=== PATIENT | male | born 1945 | race Caucasian/White ===

== ENCOUNTER → 2018-03-17 10:37 | Outpatient (CLI) | payer MEDICARE, SELFPAY ==
[2018-03-17 12:48] LABS: ALT 31 U/L (12-78); AST 17 U/L (15-37); Albumin 3.7 g/dL (3.4-5.0); Alkaline Phosphatase 80 U/L (46-116); Bilirubin, Total 0.6 mg/dL (0.2-1.0); Cholesterol 173 mg/dL (50-200); HDL Cholesterol 49 mg/dL (40-60); LDL CHOLESTEROL 101 mg/dL (<100); Total Protein 7.1 g/dL (6.4-8.2); Triglyceride 140 mg/dL (30-150)
[2018-03-17 13:14] LABS: Bilirubin, Direct 0.17 mg/dL (0.00-0.20)
== END ==
PROVIDERS: PCP Family Medicine; Visit Provider Family Medicine
DX: E78.5 Hyperlipidemia, unspecified (principal)
CPT/HCPCS: 36415; 80061; 80076; 83721

== ENCOUNTER 2020-09-10 17:54 | Outpatient (REF) | payer MEDICARE, SELFPAY ==
[2020-09-10 18:15] LABS: Abs Immature Grans 0.03 10^3/uL (0.0-0.06); Absolute Basophil Count 0.04 10^3/uL (0.0-0.2); Absolute Monocyte Count 0.65 10^3/uL (0.1-0.8); Absolute Neutrophil Count 6.79 10^3/uL (1.2-6.7); Basophils % 0.4; Eosinophils % 1.1; HGB 13.7 g/dL (13.5-17.5); Immature Grans % 0.3; Lymphocytes % 16.5; MCHC 32.6 % (32.0-36.0); MCV 92.1 fL (80-95); MPV 11.5 fL (8.0-11.0); Monocytes % 7.1; Neutrophils % 74.6; Nucleated RBC 0 %; Platelet Count 258 10^3/uL (130-400); RBC 4.56 10^6/uL (4.36-5.78); RDW 13.2 % (11.8-14.1); RDW-SD 44.8 fL; WBC 9.11 10^3/uL (4.4-10.8)
[2020-09-10 18:35] LABS: ALT 28 U/L (16-63); AST 24 U/L (15-37); Albumin 3.2 g/dL (3.4-5.0); Alkaline Phosphatase 73 U/L (46-116); Anion Gap 3.2 mmol/L (3-11); BUN 21 mg/dL (7-18); Bilirubin, Total 0.4 mg/dL (0.2-1.0); CO2 25.8 mmol/L (21.0-32.0); CREATININE 1.4 mg/dL (0.70-1.30); Calcium 8.6 mg/dL (8.5-10.1); Chloride 105 mmol/L (98-107); Estimated GFR 49.68 (mL/min/1.73m2); Folate 6.4 ng/mL (8.6-20.0); Glucose 106 mg/dL (74-106); Sodium 134 mmol/L (136-145); TSH (W/Ref FT4) 1.48 uIU/mL (0.36-3.74)
[2020-09-12 22:05] LABS: Vitamin B12 1280 pg/mL (211-911)
== END 2020-09-10 17:55 | disposition home or self-care (01) ==
LOC: LBN 17:54
PROVIDERS: Visit Provider Family Medicine
DX: G30.1 Alzheimer's disease with late onset (principal); E66.3 Overweight
CPT/HCPCS: 80053; 82607; 82746; 84443; 85025

== ENCOUNTER 2020-10-17 15:45 | Outpatient (REF) | payer MEDICARE, SELFPAY ==
[2020-10-17 16:31] LABS: Vitamin D 25 Total 30.4 ng/ml (30-100)
== END 2020-10-17 15:46 | disposition home or self-care (01) ==
LOC: LBN 15:45
PROVIDERS: Visit Provider Family Medicine
DX: E55.9 Vitamin D deficiency, unspecified (principal)
CPT/HCPCS: 82306

== ENCOUNTER 2021-05-22 11:41 | Outpatient (REF) | payer MEDICARE, SELFPAY ==
[2021-05-22 11:54] LABS: Abs Immature Grans 0.06 10^3/uL (0.0-0.06); Absolute Basophil Count 0.05 10^3/uL (0.0-0.2); Absolute Eosinophil Count 0.06 10^3/uL (0.0-0.7); Absolute Lymphocyte Count 1.75 10^3/uL (1.2-3.4); Absolute Monocyte Count 0.72 10^3/uL (0.1-0.8); Absolute Neutrophil Count 6.33 10^3/uL (1.2-6.7); Basophils % 0.6; Eosinophils % 0.7; HCT 48.7 % (40.0-50.0); HGB 15.8 g/dL (13.5-17.5); Immature Grans % 0.7; Lymphocytes % 19.5; MCH 29.5 pg (27.0-33.0); MCHC 32.4 % (32.0-36.0); MPV 10.6 fL (8.0-11.0); Neutrophils % 70.5; Nucleated RBC 0 %; Platelet Count 353 10^3/uL (130-400); RBC 5.35 10^6/uL (4.36-5.78); RDW 13.2 % (11.8-14.1); RDW-SD 43.8 fL; WBC 8.97 10^3/uL (4.4-10.8)
[2021-05-22 12:20] LABS: Hemoglobin A1C 5.6 % (<5.7)
[2021-05-22 12:27] LABS: ALT 24 U/L (16-63); AST 15 U/L (15-37); Albumin 3.9 g/dL (3.4-5.0); Alkaline Phosphatase 67 U/L (46-116); BUN 17 mg/dL (7-18); Bilirubin, Total 0.6 mg/dL (0.2-1.0); CREATININE 1.3 mg/dL (0.70-1.30); Calcium 8.7 mg/dL (8.5-10.1); Chloride 105 mmol/L (98-107); Estimated GFR 53.96 (mL/min/1.73m2); Glucose 113 mg/dL (74-106); Magnesium 2.2 mg/dL (1.8-2.4); Potassium 4.4 mmol/L (3.5-5.1); Sodium 141 mmol/L (136-145); TSH (W/Ref FT4) 2.27 uIU/mL (0.36-3.74); Total Protein 6.9 g/dL (6.4-8.2)
[2021-05-23 00:37] LABS: Vitamin D 25 Total 56.8 ng/mL (30-100)
== END 2021-05-22 11:42 | disposition home or self-care (01) ==
LOC: LBN 11:41
PROVIDERS: Visit Provider Internal Medicine
DX: D52.0 Dietary folate deficiency anemia (principal); E78.5 Hyperlipidemia, unspecified; R63.4 Abnormal weight loss
CPT/HCPCS: 80053; 82306; 83036; 83735; 84443; 85025

== ENCOUNTER 2021-07-05 19:01 | Outpatient (REF) | payer MEDICARE, SELFPAY | END 2021-07-05 19:02 | disposition home or self-care (01) | LOC: LBN 19:01 | PROVIDERS: Visit Provider Internal Medicine | DX: R30.0 Dysuria (principal) | CPT/HCPCS: 87086 ==

== ENCOUNTER 2021-07-08 16:41 | Outpatient (REF) | payer MEDICARE, SELFPAY ==
[2021-07-08 19:38] LABS: Abs Immature Grans 0.06 10^3/uL (0.0-0.06); Absolute Basophil Count 0.06 10^3/uL (0.0-0.2); Absolute Eosinophil Count 0.02 10^3/uL (0.0-0.7); Absolute Lymphocyte Count 1.25 10^3/uL (1.2-3.4); Absolute Monocyte Count 0.66 10^3/uL (0.1-0.8); Absolute Neutrophil Count 8.19 10^3/uL (1.2-6.7); Basophils % 0.6; Eosinophils % 0.2; HCT 47.4 % (40.0-50.0); HGB 15.2 g/dL (13.5-17.5); Immature Grans % 0.6; Lymphocytes % 12.2; MCH 29.9 pg (27.0-33.0); MCHC 32.1 % (32.0-36.0); MCV 93.3 fL (80-95); Monocytes % 6.4; Nucleated RBC 0 %; Platelet Count 301 10^3/uL (130-400); RBC 5.08 10^6/uL (4.36-5.78); RDW-SD 44.6 fL; WBC 10.24 10^3/uL (4.4-10.8)
[2021-07-08 20:40] LABS: Hemoglobin A1C 5.5 % (<5.7)
[2021-07-08 20:51] LABS: ALT 22 U/L (16-63); AST 15 U/L (15-37); Albumin 3.7 g/dL (3.4-5.0); Alkaline Phosphatase 70 U/L (46-116); BUN 19 mg/dL (7-18); Bilirubin, Total 0.4 mg/dL (0.2-1.0); CREATININE 1.4 mg/dL (0.70-1.30); Calcium 8.6 mg/dL (8.5-10.1); Chloride 104 mmol/L (98-107); Estimated GFR 49.54 (mL/min/1.73m2); Glucose 122 mg/dL (74-106); Iron 152 ug/dL (65-175); Potassium 4.9 mmol/L (3.5-5.1); Sodium 138 mmol/L (136-145); Total Protein 6.7 g/dL (6.4-8.2)
== END 2021-07-08 16:42 | disposition home or self-care (01) ==
LOC: LBN 16:41
PROVIDERS: Visit Provider Nurse Practitioner Gerontology
DX: D52.0 Dietary folate deficiency anemia (principal); R63.4 Abnormal weight loss; R73.09 Other abnormal glucose; G30.8 Other Alzheimer's disease
CPT/HCPCS: 80053; 83036; 83540; 85025

== ENCOUNTER 2021-07-25 19:26 | Outpatient (REF) | payer MEDICARE, SELFPAY | END 2021-07-25 19:27 | disposition home or self-care (01) | LOC: LBN 19:26 | PROVIDERS: Visit Provider Nurse Practitioner Gerontology | DX: R35.0 Frequency of micturition (principal); G30.9 Alzheimer's disease, unspecified | CPT/HCPCS: 87086 ==

== ENCOUNTER 2021-08-27 16:06 | Outpatient (REF) | payer SELFPAY ==
[2021-08-27 16:30] LABS: Abs Immature Grans 0.07 10^3/uL (0.0-0.06); Absolute Basophil Count 0.03 10^3/uL (0.0-0.2); Absolute Eosinophil Count 0.02 10^3/uL (0.0-0.7); Absolute Lymphocyte Count 1.33 10^3/uL (1.2-3.4); Absolute Monocyte Count 0.46 10^3/uL (0.1-0.8); Absolute Neutrophil Count 7.87 10^3/uL (1.2-6.7); Basophils % 0.3; Eosinophils % 0.2; HCT 45.5 % (40.0-50.0); HGB 14.9 g/dL (13.5-17.5); Immature Grans % 0.7; Lymphocytes % 13.6; MCH 30.3 pg (27.0-33.0); MCHC 32.7 % (32.0-36.0); MCV 92.7 fL (80-95); MPV 11.5 fL (8.0-11.0); Monocytes % 4.7; Neutrophils % 80.5; Nucleated RBC 0 %; Platelet Count 297 10^3/uL (130-400); RBC 4.91 10^6/uL (4.36-5.78); RDW 13.1 % (11.8-14.1); RDW-SD 44.5 fL; WBC 9.78 10^3/uL (4.4-10.8)
[2021-08-27 16:45] LABS: Iron 86 ug/dL (65-175); Total Iron Binding Capacity 235 ug/dL (250-450); Transferrin Sat 37 % (20-55)
[2021-08-27 16:47] LABS: ESR 7 mm/hr (0-20)
[2021-08-27 17:11] LABS: ALT 29 U/L (16-63); AST 15 U/L (15-37); Albumin 3.4 g/dL (3.4-5.0); Alkaline Phosphatase 80 U/L (46-116); Anion Gap 10.5 mmol/L (3-11); BUN 17 mg/dL (7-18); Bilirubin, Total 0.3 mg/dL (0.2-1.0); CO2 25.5 mmol/L (21.0-32.0); CREATININE 1.2 mg/dL (0.70-1.30); Calcium 8.3 mg/dL (8.5-10.1); Chloride 103 mmol/L (98-107); Estimated GFR 59.18 (mL/min/1.73m2); Folate 11.4 ng/mL (8.6-20.0); Glucose 168 mg/dL (74-106); Potassium 4.2 mmol/L (3.5-5.1); Sodium 139 mmol/L (136-145); TSH (W/Ref FT4) 1.14 uIU/mL (0.36-3.74); Total Protein 6.5 g/dL (6.4-8.2); Vitamin B12 1398 pg/mL (193-986)
[2021-08-27 17:21] LABS: C-Reactive Protein 0.08 mg/dL (0.0-0.3)
[2021-08-29 05:12] LABS: Vitamin D 25 Total 56.1 ng/mL (30-100)
== END 2021-08-27 16:07 | disposition home or self-care (01) ==
LOC: LBN 16:06
PROVIDERS: Visit Provider Nurse Practitioner Gerontology
DX: D52.0 Dietary folate deficiency anemia (principal); R63.4 Abnormal weight loss; E78.5 Hyperlipidemia, unspecified; G30.1 Alzheimer's disease with late onset; E55.9 Vitamin D deficiency, unspecified
CPT/HCPCS: 80053; 82306; 85652; 82607; 82746; 83540; 83550; 83735; 84443; 85025; 86140

== ENCOUNTER 2022-02-04 18:43 | Outpatient (REF) | payer MEDICARE, SELFPAY ==
[2022-02-04 18:35] LABS: Abs Immature Grans 0.09 10^3/uL (0.0-0.06); Absolute Basophil Count 0.06 10^3/uL (0.0-0.2); Absolute Eosinophil Count 0.03 10^3/uL (0.0-0.7); Absolute Lymphocyte Count 1.33 10^3/uL (1.2-3.4); Absolute Neutrophil Count 8.96 10^3/uL (1.2-6.7); Basophils % 0.5; Eosinophils % 0.3; HCT 47.2 % (40.0-50.0); HGB 15.2 g/dL (13.5-17.5); Immature Grans % 0.8; Lymphocytes % 11.9; MCH 30.5 pg (27.0-33.0); MCHC 32.2 % (32.0-36.0); MCV 95 fL (80-95); MPV 10.8 fL (8.0-11.0); Monocytes % 6.4; Neutrophils % 80.1; Platelet Count 293 10^3/uL (130-400); RBC 4.99 10^6/uL (4.36-5.78); RDW 13.3 % (11.8-14.1); RDW-SD 46.7 fL; WBC 11.18 10^3/uL (4.4-10.8)
[2022-02-04 18:37] LABS: Absolute Monocyte Count 0.72 10^3/uL (0.1-0.8)
[2022-02-04 18:51] LABS: ALT 22 U/L (16-63); AST 17 U/L (15-37); Albumin 3.6 g/dL (3.4-5.0); Alkaline Phosphatase 64 U/L (46-116); Anion Gap 10.9 mmol/L (3-11); BUN 17 mg/dL (7-18); Bilirubin, Total 0.4 mg/dL (0.2-1.0); CO2 26.1 mmol/L (21.0-32.0); CREATININE 1.3 mg/dL (0.70-1.30); Calcium 8.4 mg/dL (8.5-10.1); Chloride 106 mmol/L (98-107); Estimated GFR 53.82 (mL/min/1.73m2); Glucose 145 mg/dL (74-106); Potassium 4.9 mmol/L (3.5-5.1); Sodium 143 mmol/L (136-145); Total Protein 6.6 g/dL (6.4-8.2)
== END 2022-02-04 18:44 | disposition home or self-care (01) ==
LOC: LBN 18:43
PROVIDERS: Visit Provider Nurse Practitioner Gerontology
DX: D52.0 Dietary folate deficiency anemia (principal); R41.841 Cognitive communication deficit; G30.1 Alzheimer's disease with late onset
CPT/HCPCS: 80053; 85025

== ENCOUNTER 2022-09-02 22:20 | Outpatient (REF) | payer MEDICARE, SELFPAY ==
[2022-09-02 21:39] LABS: Iron 57 ug/dL (65-175); Total Iron Binding Capacity 319 ug/dL (250-450); Transferrin Sat 18 % (20-55)
[2022-09-02 21:55] LABS: Folate > 20.0 ng/mL (8.6-20.0)
== END 2022-09-02 22:21 | disposition home or self-care (01) ==
LOC: LBN 22:20
PROVIDERS: Visit Provider Nurse Practitioner Gerontology
DX: D51.9 Vitamin B12 deficiency anemia, unspecified (principal); E55.9 Vitamin D deficiency, unspecified; F41.1 Generalized anxiety disorder; R68.89 Other general symptoms and signs
CPT/HCPCS: 82746; 83540; 83550

== ENCOUNTER 2022-09-08 19:14 | Outpatient (REF) | payer MEDICARE, SELFPAY ==
[2022-09-08 20:47] LABS: Vitamin B12 491 pg/mL (193-986)
[2022-09-08 21:20] LABS: Vitamin D 25 Total 54.9 ng/mL (30-100)
== END 2022-09-08 19:15 | disposition home or self-care (01) ==
LOC: LBN 19:14
PROVIDERS: Visit Provider Nurse Practitioner Gerontology
DX: R68.89 Other general symptoms and signs (principal)
CPT/HCPCS: 82306; 82607

== ENCOUNTER 2022-11-05 17:59 | Outpatient (REF) | payer MEDICARE, SELFPAY ==
[2022-11-05 17:28] LABS: Abs Immature Grans 0.06 10^3/uL (0.0-0.06); Absolute Basophil Count 0.05 10^3/uL (0.0-0.2); Absolute Lymphocyte Count 1.53 10^3/uL (1.2-3.4); Absolute Monocyte Count 0.69 10^3/uL (0.1-0.8); Absolute Neutrophil Count 5.62 10^3/uL (1.2-6.7); Basophils % 0.6; Eosinophils % 1.2; HCT 45.5 % (40.0-50.0); HGB 14.7 g/dL (13.5-17.5); Immature Grans % 0.7; MCH 29.8 pg (27.0-33.0); MCHC 32.3 % (32.0-36.0); MCV 92 fL (80-95); MPV 11.1 fL (8.0-11.0); Monocytes % 8.6; Neutrophils % 69.9; Platelet Count 272 10^3/uL (130-400); RBC 4.94 10^6/uL (4.36-5.78); RDW 13.3 % (11.8-14.1); RDW-SD 45.3 fL; WBC 8.05 10^3/uL (4.4-10.8)
[2022-11-05 17:57] LABS: ALT 26 U/L (16-63); AST 14 U/L (15-37); Albumin 3.4 g/dL (3.4-5.0); Alkaline Phosphatase 62 U/L (46-116); BUN 17 mg/dL (7-18); Bilirubin, Total 0.4 mg/dL (0.2-1.0); CREATININE 1.4 mg/dL (0.70-1.30); Calcium 8.8 mg/dL (8.5-10.1); Chloride 107 mmol/L (98-107); Estimated GFR 52.09 (mL/min/1.73m2); Glucose 102 mg/dL (74-106); NT-proBNP 74 pg/mL (<300); Potassium 4.5 mmol/L (3.5-5.1); Sodium 141 mmol/L (136-145); Total Protein 6.6 g/dL (6.4-8.2)
== END 2022-11-05 18:00 | disposition home or self-care (01) ==
LOC: LBN 17:59
PROVIDERS: Visit Provider Nurse Practitioner Gerontology
DX: G30.1 Alzheimer's disease with late onset (principal); R68.89 Other general symptoms and signs; R06.89 Other abnormalities of breathing
CPT/HCPCS: 80053; 83880; 85025

== ENCOUNTER 2022-11-18 20:56 | Outpatient (REF) | payer MEDICARE, SELFPAY ==
[2022-11-18 20:55] LABS: Abs Immature Grans 0.03 10^3/uL (0.0-0.06); Absolute Basophil Count 0.05 10^3/uL (0.0-0.2); Absolute Lymphocyte Count 1.34 10^3/uL (1.2-3.4); Absolute Monocyte Count 0.71 10^3/uL (0.1-0.8); Absolute Neutrophil Count 5.53 10^3/uL (1.2-6.7); Basophils % 0.6; Eosinophils % 1.3; HGB 14.6 g/dL (13.5-17.5); Immature Grans % 0.4; Lymphocytes % 17.3; MCH 30.4 pg (27.0-33.0); MCHC 32.4 % (32.0-36.0); MCV 94 fL (80-95); MPV 11.5 fL (8.0-11.0); Monocytes % 9.1; Neutrophils % 71.3; Platelet Count 261 10^3/uL (130-400); RDW 13.4 % (11.8-14.1); RDW-SD 46.5 fL; WBC 7.76 10^3/uL (4.4-10.8)
[2022-11-18 21:24] LABS: Hemoglobin A1C 5.8 % (<5.7)
[2022-11-18 21:53] LABS: ALT 33 U/L (16-63); AST 17 U/L (15-37); Albumin 3.5 g/dL (3.4-5.0); Alkaline Phosphatase 62 U/L (46-116); Anion Gap 6.8 mmol/L (3-11); BUN 20 mg/dL (7-18); Bilirubin, Total 0.3 mg/dL (0.2-1.0); CO2 26.2 mmol/L (21.0-32.0); CREATININE 1.3 mg/dL (0.70-1.30); Calcium 8.8 mg/dL (8.5-10.1); Chloride 105 mmol/L (98-107); Estimated GFR 56.93 (mL/min/1.73m2); Glucose 97 mg/dL (74-106); NT-proBNP 159 pg/mL (<300); Potassium 4.8 mmol/L (3.5-5.1); Sodium 138 mmol/L (136-145); Total Protein 6.8 g/dL (6.4-8.2)
== END 2022-11-18 20:57 | disposition home or self-care (01) ==
LOC: LBN 20:56
PROVIDERS: Visit Provider Nurse Practitioner Gerontology
DX: R68.89 Other general symptoms and signs (principal)
CPT/HCPCS: 80053; 80164; 83036; 83880; 85025

== ENCOUNTER 2023-01-19 20:05 | Outpatient (REF) | payer MEDICARE, SELFPAY ==
[2023-01-19 20:44] LABS: Abs Immature Grans 0.04 10^3/uL (0.0-0.06); Absolute Basophil Count 0.05 10^3/uL (0.0-0.2); Absolute Eosinophil Count 0.07 10^3/uL (0.0-0.7); Absolute Lymphocyte Count 1.59 10^3/uL (1.2-3.4); Absolute Monocyte Count 0.66 10^3/uL (0.1-0.8); Absolute Neutrophil Count 5.98 10^3/uL (1.2-6.7); Basophils % 0.6; Eosinophils % 0.8; HGB 14.7 g/dL (13.5-17.5); Immature Grans % 0.5; MCH 30.6 pg (27.0-33.0); MCV 96 fL (80-95); MPV 10.8 fL (8.0-11.0); Monocytes % 7.9; Neutrophils % 71.2; Platelet Count 255 10^3/uL (130-400); RDW 13.9 % (11.8-14.1); RDW-SD 49.2 fL; WBC 8.39 10^3/uL (4.4-10.8)
[2023-01-19 20:55] LABS: ALT 31 U/L (16-63); AST 19 U/L (15-37); Albumin 3.6 g/dL (3.4-5.0); Alkaline Phosphatase 63 U/L (46-116); Anion Gap 8.3 mmol/L (3-11); BUN 21 mg/dL (7-18); Bilirubin, Total 0.3 mg/dL (0.2-1.0); CO2 28.7 mmol/L (21.0-32.0); CREATININE 1.3 mg/dL (0.70-1.30); Calcium 8.8 mg/dL (8.5-10.1); Chloride 108 mmol/L (98-107); Estimated GFR 56.93 (mL/min/1.73m2); Glucose 100 mg/dL (74-106); Potassium 4.8 mmol/L (3.5-5.1); Sodium 145 mmol/L (136-145); Total Protein 6.9 g/dL (6.4-8.2)
== END 2023-01-19 20:06 | disposition home or self-care (01) ==
LOC: LBN 20:05
PROVIDERS: Visit Provider Nurse Practitioner Gerontology
DX: E78.5 Hyperlipidemia, unspecified (principal); D52.9 Folate deficiency anemia, unspecified
CPT/HCPCS: 80053; 80164; 85025

== ENCOUNTER 2023-01-20 13:29 | Outpatient (REF) | payer MEDICARE, SELFPAY ==
[2023-01-20 14:24] LABS: VALPROIC ACID 53.6 ug/mL
== END 2023-01-20 13:30 | disposition home or self-care (01) ==
LOC: LBN 13:29
PROVIDERS: Visit Provider Nurse Practitioner Gerontology
DX: F41.1 Generalized anxiety disorder (principal); G30.1 Alzheimer's disease with late onset; F02.80 Dementia in other diseases classified elsewhere, unspecified severity, without behavioral disturbance, psychotic disturbance, mood disturbance, and anxiety
CPT/HCPCS: 80164

== ENCOUNTER 2023-08-10 18:35 | Outpatient (REF) | payer MEDICARE, SELFPAY ==
[2023-08-10 17:52] LABS: Abs Immature Grans 0.03 10^3/uL (0.0-0.06); Absolute Basophil Count 0.05 10^3/uL (0.0-0.2); Absolute Eosinophil Count 0.11 10^3/uL (0.0-0.7); Absolute Lymphocyte Count 1.53 10^3/uL (1.2-3.4); Absolute Monocyte Count 0.68 10^3/uL (0.1-0.8); Absolute Neutrophil Count 7.63 10^3/uL (1.2-6.7); Basophils % 0.5; Eosinophils % 1.1; HCT 43.6 % (40.0-50.0); Immature Grans % 0.3; Lymphocytes % 15.3; MCH 31.5 pg (27.0-33.0); MCHC 32.1 % (32.0-36.0); MCV 98 fL (80-95); MPV 11.9 fL (8.0-11.0); Monocytes % 6.8; Platelet Count 263 10^3/uL (130-400); RBC 4.45 10^6/uL (4.36-5.78); RDW 13.2 % (11.8-14.1); RDW-SD 47.8 fL; WBC 10.03 10^3/uL (4.4-10.8)
[2023-08-10 18:16] LABS: VALPROIC ACID 42.1 ug/mL
== END 2023-08-10 18:36 | disposition home or self-care (01) ==
LOC: LBN 18:35
PROVIDERS: Visit Provider Nurse Practitioner Gerontology
DX: F33.9 Major depressive disorder, recurrent, unspecified (principal); Z51.81 Encounter for therapeutic drug level monitoring; Z79.899 Other long term (current) drug therapy; R63.4 Abnormal weight loss
CPT/HCPCS: 80164; 85025